=== PATIENT | female | born 1950 | race Asian ===

== ENCOUNTER 2019-06-23 08:47 | Day surgery (SDC) | payer OTHER | END 2019-06-23 10:40 | disposition home or self-care (01) | LOC: OR 08:47 | PROC: 3E0R33Z Introduction of Anti-inflammatory into Spinal Canal, Percutaneous Approach (ICD-10-PCS; principal; 2019-06-23) | PROC: B01BYZZ Fluoroscopy of Spinal Cord using Other Contrast (ICD-10-PCS; 2019-06-23) | DX: Z53.8 Procedure and treatment not carried out for other reasons (principal); M51.16 Intervertebral disc disorders with radiculopathy, lumbar region | CPT/HCPCS: J1020 ==

== ENCOUNTER 2019-08-25 07:45 | Day surgery (SDC) | payer OTHER ==
[~2019-08-25] VITALS: Ht 177.8 cm; Wt 88.5 kg
[2019-08-25 09:04] LABS: PARTIAL THROMBOPLASTIN TIME 25.2 SECONDS (24.5-33.6)
== END 2019-08-25 09:00 | disposition home or self-care (01) ==
LOC: OR 07:45
PROVIDERS: Pain Medicine Interventional Pain Medicine
PROC: 3E0R33Z Introduction of Anti-inflammatory into Spinal Canal, Percutaneous Approach (ICD-10-PCS; principal; 2019-08-25)
PROC: B01BYZZ Fluoroscopy of Spinal Cord using Other Contrast (ICD-10-PCS; 2019-08-25)
DX: M51.16 Intervertebral disc disorders with radiculopathy, lumbar region (principal); Z79.01 Long term (current) use of anticoagulants
CPT/HCPCS: 85610; 85730; J1020

== ENCOUNTER 2019-12-29 07:29 | Day surgery (SDC) | payer OTHER ==
[2019-12-29 09:22] LABS: PARTIAL THROMBOPLASTIN TIME 62.8 SECONDS (24.5-33.6)
[2019-12-29 10:06] LABS: PLATELET COUNT 211 K/uL (152-353)
[2019-12-29 10:15] LABS: POTASSIUM 3.5 mmol/L (3.6-5.2)
[2019-12-29 10:30] LABS: PARTIAL THROMBOPLASTIN TIME 32.5 SECONDS (24.5-33.6)
== END 2019-12-29 12:05 | disposition home or self-care (01) ==
LOC: OR 07:29
PROVIDERS: Pain Medicine Interventional Pain Medicine
DX: M51.16 Intervertebral disc disorders with radiculopathy, lumbar region (principal); M96.1 Postlaminectomy syndrome, not elsewhere classified; Z79.01 Long term (current) use of anticoagulants
CPT/HCPCS: 80053; 85002; 85027; 85610; 85730; J1642; J2704; J3490